=== PATIENT | male | born 1955 | race Caucasian/White ===

== ENCOUNTER 2021-08-20 15:19 | Observation (INO) ==
[2021-08-20 16:59] LABS: Basophils % 0.3 %; Hematocrit 47.9 % (37.5-50.1); Immature Granulocytes % 0.6 % (0-4); Lymphocytes # 0.8 K/mcL (0.6-4.6); Lymphocytes % 11.7 %; Mean Corpuscular HGB Conc 33.4 g/dL (31.6-35.5); Mean Corpuscular Hemoglobin 30.8 pg (28.0-33.3); Mean Corpuscular Volume 92.1 fL (83.0-100.0); Mean Platelet Volume 11.3 fL (9.4-12.4); Monocytes # 0.2 K/mcL (0.0-1.3); Monocytes % 2.3 %; Neutrophils # 5.5 K/mcL (1.6-8.9); Platelet Count 165 K/mcL (140-400); Red Cell Distribution Width 12.9 % (11.5-14.5); Segmented Neutrophils % 85.1 %; White Blood Count 6.5 K/mcL (4.3-11.1)
[2021-08-20 17:02] LABS: BUN/Creatinine Ratio 19 (6-26); Blood Urea Nitrogen 20 mg/dL (8-23); Calcium 9.4 mg/dL (8.6-10.3); Carbon Dioxide 27 mEq/L (23-29); Chloride 103 mEq/L (98-107); Glucose 260 mg/dL (70-105); Osmolality,Calculated 302 (280-300); Potassium 4.1 mEq/L (3.5-5.1); Sodium 140 mEq/L (136-145); eGFR For African Americans > 60 (> 60); eGFR For Non-African Americans > 60 (> 60)
[2021-08-20 17:07] LABS: Troponin I 0.04 ng/mL (< 0.04)
[2021-08-20 20:18] LABS: Troponin I 0.31 ng/mL (< 0.04)
[2021-08-20 20:28] LABS: Magnesium 2.3 mg/dL (1.6-2.6)
[2021-08-20] MEDS ORDERED: *HR* Heparin 5,000 UNIT/ML VIAL IVP ONE (21:02)
[2021-08-20] MEDS ORDERED: *HR* Heparin 5,000 UNIT/ML VIAL IVP PRN ×2 (21:02)
[2021-08-20] MEDS ORDERED: Heparin 25,000UNIT/250ML 1/2NS 25,000 UNIT/250 ML IV.SOLN IVC SCH (21:15)
[2021-08-20] MEDS ORDERED: Acetaminophen 325 MG TABLET PO PRN (23:14)
[2021-08-20] MEDS ORDERED: Naloxone 0.4 MG/ML INJ IVP PRN (23:14)
[2021-08-20] MEDS ORDERED: Ondansetron 4 MG/2 ML VIAL IVP PRN (23:14)
[2021-08-20] MEDS ORDERED: Melatonin 3 MG TABLET PO PRN (23:14)
[2021-08-21 03:19] LABS: Hematocrit 41.2 % (37.5-50.1); Mean Corpuscular HGB Conc 33.7 g/dL (31.6-35.5); Mean Corpuscular Hemoglobin 30.8 pg (28.0-33.3); Mean Corpuscular Volume 91.4 fL (83.0-100.0); Mean Platelet Volume 10.8 fL (9.4-12.4); Platelet Count 159 K/mcL (140-400); Red Blood Count 4.51 M/mcL (4.19-5.50); White Blood Count 7.1 K/mcL (4.3-11.1)
[2021-08-21 03:46] LABS: Alanine Aminotransferase 60 Units/L (7-52); Albumin 3.4 g/dL (3.5-5.7); Albumin/Globulin Ratio 1.4 (1.1-2.2); Aspartate Amino Transferase 38 Units/L (13-39); BUN/Creatinine Ratio 19 (6-26); Bilirubin,Total 0.4 mg/dL (0.3-1.0); Blood Urea Nitrogen 18 mg/dL (8-23); Calcium 8.8 mg/dL (8.6-10.3); Carbon Dioxide 27 mEq/L (23-29); Chloride 107 mEq/L (98-107); Globulin 2.5 g/dL (2.4-3.5); Glucose 231 mg/dL (70-105); Osmolality,Calculated 297 (280-300); Phosphorous 1.9 mg/dL (2.7-4.5); Potassium 3.4 mEq/L (3.5-5.1); Sodium 139 mEq/L (136-145); Total Protein 5.9 g/dL (6.4-8.9); eGFR For African Americans > 60 (> 60); eGFR For Non-African Americans > 60 (> 60)
[2021-08-21 03:50] LABS: Hemoglobin 13.9 g/dL (12.9-16.9)
[2021-08-21 06:01] LABS: Influenza A PCR Negative (Negative); Influenza B PCR Negative (Negative); Resp. Syncytial Virus PCR Negative (Negative)
[2021-08-21 06:15] LABS: SARS-CoV-2 by PCR (In House) Positive (Negative)
[2021-08-21 06:21] LABS: Alkaline Phosphatase 58 Units/L (34-104)
[2021-08-21] MEDS ORDERED: Perflutren Lipid Microsphere 1.3 ML in 0.9 % Sodium Chloride 8.7 ML IVP PRN (07:55)
[2021-08-21 08:03] VITALS: TEMP 97.9
[2021-08-21] MEDS: Ipratropium 1 PUFF INHALER IH SCH ×2 (08:11→11:20)
[2021-08-21] MEDS ORDERED: Aspirin 81 MG TAB.CHEW PO SCH (09:00)
[2021-08-21 09:16] LABS: Estimated Average Glucose 120 mg/dl; Hemoglobin A1C 5.8 %
[2021-08-21] MEDS ORDERED: amLODIPine 5 MG TABLET PO SCH (09:30)
[2021-08-21] MEDS ORDERED: Potassium Chloride Elixir 20 MEQ/15 ML UDC PO ONE (11:01)
[2021-08-21] MEDS ORDERED: Metoprolol XL (24 HR) Succ 50 MG TAB.ER.24H PO SCH (11:15)
[2021-08-21 11:31] VITALS: BP 156/90; PULSE 66; O2SAT 94
[2021-08-21 12:09] LABS: Troponin I 0.17 ng/mL (< 0.04)
[2021-08-21 13:45] LABS: Thyroid Stimulating Hormone 0.775 mcIU/mL (0.340-5.600)
== END 2021-08-21 15:11 | disposition home or self-care (01) ==
LOC: 3ANU 15:19 → EMEROOARM 15:19 → SUATTDRO 21:37 → 3ANU 22:19
PROVIDERS: ADMIT Family Medicine; ATTEND Internal Medicine